=== PATIENT | female | born 1950 | race Caucasian/White ===

== ENCOUNTER 2020-09-19 07:57 | Day surgery (SDC) | payer MEDICARE, MEDICAID ==
[~2020-09-19] VITALS: Ht 157.5 cm; Wt 66.7 kg
[2020-09-19] VITALS (9 sets, daily range): BP systolic 140–160; BP diastolic 79–97
[~2020-09-19 07:57] MED LIST: ALBUTEROL SULF8.5 G1 INH; ATENOLOL25 MG ORAL; BRILINTA90 MG PO; CRESTOR10 M2 ORAL; DICLOFENAC SODI50 MG ORAL; NORCO 10-325 T1 EACH ORAL; OMEPRAZOLE40 M1 ORAL; TRELEGY ELLIPT1 EAC1 IH; Vit D PO
--- NOTE | 2020-09-19 08:43 | Anethesia Preoperative Eval ---
Anesthesia Pre-op PMH/ROS General Date of Evaluation: Sep 19, 2020 Anesthesiologist: Inocente ASA Score: ASA 3 Mallampati Score Class I : Soft palate, uvula, fauces, pillars visible Class II: Soft palate, uvula, fauces visible Class III: Soft palate, base of uvula visible Class IV: Only hard plate visible Mallampati Classification: Class II Surgeon: Lucia Diagnosis: right bunion Surgical Procedure: right bunionectomy Anesthesia History: none Family History: no anesthesia problems Allergies: Coded Allergies: No Known Allergies (Unverified , 09/18/20) Medications: see eMAR Patient NPO?: Yes NPO Date: Sep 19, 2020 NPO Time: 00:00 Past Medical History Cardiovascular: Reports: HTN, CAD - x2 sentss, other - HLD; Denies: IN, valve dz, arrhythmia Pulmonary: Reports: asthma; Denies: COPD, DANILO, other Gastrointestinal/Genitourinary: Reports: GERD; Denies: CRI, ESRD, other Neurologic/Psychiatric: Reports: depression/anxiety; Denies: dementia, CVA, TIA, other Endocrine: Denies: DM, hypothyroidism, steroids, other HEENT: Denies: cataract (L), cataract (R), glaucoma, NIKOLSKI (L), NIKOLSKI (R), other Hematology/Immune: Denies: anemia, DVT, bleeding disorder, other Musculoskeletal/Integumentary: Reports: OA; Denies: RA, DJD, DDD, edema, other PSxH Narrative: VAZQUEZ, left bunion, right TKR, bilateral cataract Anesthesia Pre-op Phys. Exam Physician Exam Last Vital Signs Date Time Temp Pulse Resp B/P (MAP) Pulse Ox O2 Delivery O2 Flow Rate FiO2 09/19/20 08:31 97.8 72 18 150/89 99 Room Air Constitutional: NAD Cardiovascular: RRR Respiratory: CTA Airway Exam Mallampati Score: Class II MO: full ROM: full Anesthesia Pre-op A/P Labs see chart Studies Pre-op Studies: EKG - sr Risk Assessment & Plan Assessment: ASA III Plan: MAC Status Change Before Surgery: No Pre-Antibiotics Drug: ancef 1g Given Within 1 Hr of Incision: Yes Brigitte Brower MD Sep 19, 2020 08:42
[2020-09-19] MEDS ORDERED: Hydromorphone 0.5mg/0.5ml inj IVP PRN (08:45)
[2020-09-19] MEDS ORDERED: Lidocaine 1% MPF 10mg/ml 5ml ONE (08:45)
[2020-09-19] MEDS ORDERED: LR 1000ml 1,000 ML IVLG SCH (08:45)
[2020-09-19] MEDS ORDERED: LORazepam Inj 2mg/ml 1ml IV PRN (08:45)
[2020-09-19] MEDS ORDERED: DiphenhydrAMINE 50mg/ml Inj IVP PRN (08:45)
[2020-09-19] MEDS ORDERED: Midazolam 2mg/2ml Inj IVP PRN (08:45)
[2020-09-19] MEDS ORDERED: Ketorolac 30mg Inj IV PRN (08:45)
[2020-09-19] MEDS ORDERED: fentaNYL 100 mcg/2 mL IV PRN (08:45)
[2020-09-19] MEDS ORDERED: Labetalol 5mg/ml 20ml vial IV PRN (08:45)
[2020-09-19] MEDS ORDERED: Bacitracin Oint 15gm Tube TOPIC ONE (08:49)
[2020-09-19] MEDS ORDERED: Bupivacaine 0.5% Inj 30 ml vial INJ ONE (08:49)
[2020-09-19] MEDS ORDERED: Betadine 10% Oint 30gm TOPIC ONE (08:49)
--- NOTE | 2020-09-19 08:58 | Pre-Procedure Note/Attestation ---
Pre-Procedure Note/Attestation Complete Prior to Procedure Planned Procedure: right Procedure Narrative: Bunionectomy right foot Indications for Procedure Pre-Operative Diagnosis: Hallux Rigidus right foot Attestation I attest that I discussed the nature of the procedure; its benefits; risks and complications; and alternatives (and the risks and benefits of such alternatives), prior to the procedure, with the patient (or the patient's legal client service representative). I attest that, if there was a reasonable possibility of needing a blood transfusion, the patient (or the patient's legal client service representative) was given the [facility] standardized written summary, pursuant to the Ryan Latoya Blood Safety Act ([place] Health and Safety Code # 1645, as amended). I attest that I re-evaluated the patient just prior to the surgery and that there has been no change in the patient's H&P, except as documented below: Mario Myers DPM Sep 19, 2020 08:58
[2020-09-19] MEDS ORDERED: NS Irrig 1000ml ONE (09:00)
[2020-09-19] MEDS ORDERED: Nail Polish Remover TOPIC SCH (09:00)
[2020-09-19] MEDS ORDERED: Sterile Water Irrig 1000ml IRRIG ONE (09:00)
[2020-09-19] MEDS ORDERED: LR 1000ml ONE (09:00)
[2020-09-19] MEDS ORDERED: DiphenhydrAMINE 50mg/ml Inj ONE (09:03)
[2020-09-19] MEDS ORDERED: Lidocaine 1% Plain 30 ml INJ ONE (09:19)
--- NOTE | 2020-09-19 10:20 | Brief Operative Note ---
Immediate Post Operative Note Operative Note Pre-op Diagnosis: Hallux Rigidus right foot Procedure: Carias bunionectomy right foot Post-op Diagnosis: same as pre-op Surgeon: Lucia Anesthesiologist: Brigitte Anesthesia: MAC Specimen: yes Complications: none Condition: stable Fluids: 1000 Estimated Blood Loss: none Drains: none Implant(s) used?: No Mario Myers DPM Sep 19, 2020 10:19
--- NOTE | 2020-09-19 10:22 | Immediate Post-Op Evaluation ---
Immediate Post-Op Evalulation Immediate Post-Op Evalulation Procedure: right foot bunionectomy Date of Evaluation: Sep 19, 2020 Time of Evaluation: 10:23 IV Fluids: 200 Blood Products: 0 Estimated Blood Loss: min Urinary Output: 0 Blood Pressure Systolic: 159 Blood Pressure Diastolic: 97 Pulse Rate: 72 Respiratory Rate: 16 O2 Sat by Pulse Oximetry: 100 Temperature (Fahrenheit): 97.1 Pain Score (1-10): 0 Nausea: No Vomiting: No Complications 0 Patient Status: awake, reacts, patent, none Hydration Status: adequate Drug: Ancef 1g Given Within 1 Hr of Incision: Yes Brigitte Brower MD Sep 19, 2020 10:22
--- NOTE | 2020-09-19 10:25 | 48 Hour Post Anesthesia Eval ---
Post Anesthesia Evaluation Procedure: right foot bunionectomy Date of Evaluation: Sep 19, 2020 Airway: patent Nausea: No Vomiting: No Pain Intensity: 0 Hydration Status: adequate Cardiopulmonary Status: at baseline Mental Status/LOC: patient returned to baseline Post-Anesthesia Complications: 0 Follow-up care needed: ready to discharge Brigitte Brower MD Sep 19, 2020 10:25
--- NOTE | 2020-09-19 14:15 | Operative Note - Dictated ---
DATE OF OPERATION: 09/19/2020 SURGEON: Mario Myers DPM. ANESTHESIOLOGIST: Dr. Briggs. ANESTHESIA: Local standby. PREOPERATIVE DIAGNOSIS: Hallux rigidus, right foot. POSTOPERATIVE DIAGNOSIS: Hallux rigidus, right foot. PROCEDURE PERFORMED: Carias type bunionectomy, right foot. Extensor Hallucis Longus tendon lengthening right DESCRIPTION OF THE OPERATION: The patient was brought to the operating room and was placed on the operating room table in the supine position. IV sedation was administered by the anesthesiologist. Local anesthesia consisting of 0.5% Marcaine plain total of 10 mL was administered to the right foot. An ankle tourniquet was applied to the right lower extremity. The foot was prepped and draped in the usual sterile manner. An Esmarch bandage was then utilized to exsanguinate the blood and the right ankle tourniquet was inflated to 250 mmHg. Attention was then directed to the dorsal aspect of the first metatarsophalangeal joint where an approximately 6 cm dorsal linear skin incision was performed. The incision was deepened utilizing sharp and blunt dissection with care being taken to cauterize and ligate all bleeders. At the level of the capsule, a linear capsulotomy was performed. The capsule was reflected medially and laterally. Attention was then directed to the dorsal exostosis of the first metatarsal head. Utilizing a sagittal saw, the dorsal exostosis was removed in total. At this point, a medial exostosis was then resected utilizing the sagittal saw. The bone was rasped smooth. The wound was copiously flushed utilizing sterile saline. Attention was then directed to the proximal phalanx where an approximately one-third of the proximal aspect of the proximal phalanx was resected utilizing a sagittal saw. The wound was copiously flushed utilizing sterile saline. At this point, the extensor tendon was isolated utilizing blunt dissection. Utilizing a Z-plasty technique, the extensor tendon was lengthened. The wound was copiously flushed utilizing sterile saline. At this point, the capsule was reapproximated utilizing 0 Vicryl in a simple interrupted type stitch. Subcutaneous tissue was then reapproximated utilizing 4-0 Vicryl in a buried knot type stitch. The skin was then reapproximated utilizing 4-0 nylon in a simple interrupted type stitch. The wound was dressed utilizing an Adaptic, 4 x 4 gauze, and 3 inch Fei. The right ankle tourniquet was deflated and vascular supply was noted to all digits right foot. The patient tolerated the procedure well and left the operating room to recovery room with all vital signs stable. Mario Myers D.P.M. DR: CECIL JOB#: [id number] CC: MADISON
--- NOTE | 2020-09-19 14:29 | History and Physical Report ---
DATE OF ADMISSION: 09/19/2020 HISTORY OF PRESENT ILLNESS: This is a 70-year-old white female who was admitted today for outpatient right foot surgery. The patient has been under my care for the past year. She has been complaining of pain emanating from her right bunion for many years. Conservative treatment which consisted of shoe-gear modification and padding failed fail to alleviate the pain and the patient elected to undergo bunionectomy. PAST MEDICAL HISTORY: Remarkable for coronary artery disease, hyperlipidemia, hypertension, asthma, gastritis, gastroesophageal reflux, osteoarthritis. PAST SURGICAL HISTORY: Partial hysterectomy, cataract, left foot bunionectomy, right knee surgery and cardiac catheterization. MEDICATIONS: Aspirin, Tylenol, atenolol, Brilinta, rosuvastatin, gabapentin, and omeprazole. ALLERGIES: No known drug allergies. PODIATRIC PHYSICAL EXAMINATION: VASCULAR STATUS: Dorsalis pedis and posterior tibial arteries are equally palpable measuring 2/4 bilaterally. Capillary filling time is less than 4 seconds to all digits bilaterally. Homans sign is negative. Mild varicosities bilateral lower extremities are noted. NEUROLOGICAL: Reveals intact reflexes, Achilles and patellar measuring 2/4 bilaterally. Sensation, vibrations, proprioception are all intact bilateral lower extremity. Babinski is negative. Clonus is absent bilaterally. MUSCULOSKELETAL: Reveals dorsal and medial bunion over the right foot, painful to palpation. Joint range of motion of the first metatarsophalangeal joint is reduced. Minimal crepitations are noted. Semi-reducible hammertoe deformities of digits 2 through 5 are noted bilaterally. Joint range of motion of the ankle, subtalar joint, and midtarsal joints are all reduced bilaterally. No other skeletal deformities are noted bilaterally. DERMATOLOGICAL: Reveals erythema overlying the dorsal aspect of the first metatarsophalangeal joint secondary to exuberant bone. There is a scar present overlying the left hallux following bunionectomy. All nails are present and dystrophic bilaterally. No other lesions or ulcerations are noted bilaterally. ASSESSMENT: 1. Hallux rigidus, right foot. 2. Bunion, right foot. PLAN: The patient is admitted today for outpatient bunionectomy of her right foot. Risk complications, and alternative discussed with the patient's again, postoperative instructions were given to the patient. Postoperative medication was dispensed to the patient. The patient elected to proceed with surgery. Mario Myers D.P.M. DR: Loco JOB#: [id number] CC:
--- NOTE | 2020-09-21 20:11 | Diagnostic Imaging Report ---
EXAM: XR Right Foot Complete, 3 or More Views CLINICAL HISTORY: POST-OP TECHNIQUE: Frontal, lateral and oblique views of the right foot. COMPARISON: None FINDINGS: Bones/joints: Recent osteotomy changes of the proximal aspect of the right first proximal phalanx. Irregularity of the medial cortex of the right first metatarsal may represent nondisplaced fracture or post surgical change. Degenerative changes of the right first metatarsal head. Osteopenia. No acute fracture. No dislocation. Soft tissues: Soft tissue swelling. Phleboliths in the anterior soft tissues of the right lower leg. No radiopaque foreign body. IMPRESSION: Recent osteotomy changes of the proximal aspect of the right first proximal phalanx. Irregularity of the medial cortex of the right first metatarsal may represent nondisplaced fracture or post surgical change.
== END 2020-09-19 12:30 | disposition home or self-care (01) ==
LOC: SUR 07:57
DX: M20.21 Hallux rigidus, right foot (principal); E78.5 Hyperlipidemia, unspecified; I11.9 Hypertensive heart disease without heart failure; I25.10 Atherosclerotic heart disease of native coronary artery without angina pectoris; K21.9 Gastro-esophageal reflux disease without esophagitis; M19.90 Unspecified osteoarthritis, unspecified site; Z90.710 Acquired absence of both cervix and uterus; Z79.82 Long term (current) use of aspirin; Z79.899 Other long term (current) drug therapy; Z95.5 Presence of coronary angioplasty implant and graft; F32.9 Major depressive disorder, single episode, unspecified; F41.9 Anxiety disorder, unspecified; Z96.651 Presence of right artificial knee joint
CPT/HCPCS: 28292; 73630; 94003; J0690; J1100; J1200; J2001; J2250; J2704; J3010; J3490; J7120; U0002; 94150